=== PATIENT | female | born 1995 | race American Indian/Alaskan Native ===

== ENCOUNTER 2018-02-12 12:52 | Emergency (ER) | payer BC ==
[2018-02-12 12:58] VITALS: BP 98/72
--- NOTE | 2018-02-12 13:33 | Emergency Department Report ---
Chief Complaint: Abdominal Pain Stated Complaint: BACK PAIN Time Seen by Provider: 02/12/18 13:31 - HPI History of Present Illness: 22-year-old female presents to the emergency department with left flank pain that she says is "kidney pain" that started earlier today. She came in by EMS. No nausea, vomiting, fever, dysuria, vaginal bleeding or discharge. 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 - ROS Review of Systems: Positive for left flank/kidney pain Negative for nausea, vomiting, fever, dysuria, vaginal bleeding or discharge - Exam Vital Signs: Vital Signs 02/12/18 12:54 Temperature 98.3 F Pulse Rate 103 H Respiratory 16 Rate Blood Pressure 98/72 O2 Sat by Pulse 98 Oximetry Physical Exam: There is mild CVA tenderness to palpation but no discomfort with light palpation. Heart and lung sounds are normal auscultation. Normal bowel sounds MSE screening note: Focused history and physical exam performed. Due to findings the following was ordered: I have ordered a CBC, CMP, urinalysis and urine test. She will have a left renal ultrasound. ED Disposition for MSE Condition: Stable Instructions: Abdominal Pain (ED) Referrals: PRIMARY CARE, [Primary Care Provider] - 3-5 Days
[2018-02-12 14:15] LABS: Basophils % (Auto) 0.5 % (0.0-1.8); Eosinophils % (Auto) 0.2 % (0.0-4.3); Hematocrit 39.8 % (30.3-42.9); Hemoglobin 12.8 gm/dl (10.1-14.3); Lymphocytes # (Auto) 1.2 K/mm3 (1.2-5.4); Lymphocytes % (Auto) 17.3 % (13.4-35.0); Mean Corpuscular HGB Conc 32 % (30-34); Mean Corpuscular Hemoglobin 28 pg (28-32); Mean Corpuscular Volume 86 fl (79-97); Monocytes # (Auto) 0.7 K/mm3 (0.0-0.8); Monocytes % (Auto) 9.9 % (0.0-7.3); Platelet Count 253 K/mm3 (140-440); Red Blood Count 4.63 M/mm3 (3.65-5.03); Red Cell Distribution Width 15.4 % (13.2-15.2)
[2018-02-12 14:49] LABS: Alanine Aminotransferase 8 units/L (7-56); Albumin 4.2 g/dL (3.9-5); BUN/Creatinine Ratio 14; Blood Urea Nitrogen 10 mg/dL (7-17); Calcium 9.1 mg/dL (8.4-10.2); Hemolysis Index 12
[2018-02-12 15:04] LABS: Bilirubin,Urine NEG (Negative); Blood,Urine NEG (Negative); Color,Urine Yellow (Yellow); Mucus,Urine 2+ /HPF; Protein,Urine <15 mg/dL mg/dL (Negative); Urobilinogen,Urine < 2.0 mg/dL (<2.0)
[2018-02-12 15:07] LABS: HCG Qualitative,Urine Negative (Negative)
--- NOTE | 2018-02-12 15:36 | Ultrasound Report ---
FINAL REPORT EXAM: US RENAL LT HISTORY: left flank pain TECHNIQUE: Renal ultrasound. PRIORS: None currently available. FINDINGS: Only the left kidney was imaged. Left kidney measures 12.3 x 6.7 x 5.4 cm. Cortex measures 1.7 cm. Mildly prominent left renal calices may be related to minimal hydronephrosis or pelviectasis. No distinct lesions. Normal echotexture noted. Contracted bladder is not well evaluated. Grossly unremarkable. IMPRESSION: Mildly prominent left renal calices may represent pelviectasis or and minimal hydronephrosis.
--- NOTE | 2018-02-12 16:02 | Emergency Department Report ---
ED Abdominal Pain HPI - General Chief Complaint: Abdominal Pain Stated Complaint: BACK PAIN Time Seen by Provider: 02/12/18 13:31 Source: patient Mode of arrival: Ambulatory Limitations: No Limitations - History of Present Illness Initial Comments: This is a 22-year-old female nontoxic, well nourished in appearance, no acute signs of distress presents to the ED with c/o of left flank pain x1 day. Patient describes pain as cramping and aching with level of 8/10. Patient denies any radiation of pain. Patient denies any urinary symptoms. Patient denies any nausea, vomiting, chest pain, shortness of breathe, fever, chills, headache, neck pain, numbness or tingling. Patient denies any vaginal bleeding or discharge. Patient stated has history of right nephrectomy as a child. Patient denies any trauma. Denies any allergies. MD Complaint: flank pain -: days(s) (1) Location: L flank Radiation: none Migration to: no migration Severity scale (0 -10): 8 Quality: cramping, aching Consistency: constant Improves With: nothing Worsens With: nothing Associated Symptoms: denies other symptoms. denies: nausea, vomiting, diarrhea , fever, chills, constipation, dysuria, hematemesis, hematochezia, melena, hematuria, anorexia, syncope - Related Data LMP Date: 01/31/18 Previous Rx's Medication Instructions Recorded Last Taken Type Ibuprofen [Motrin] 600 mg PO Q8H PRN #30 tablet 02/12/18 Unknown Rx Allergies Allergy/AdvReac Type Severity Reaction Status Date / Time No Known Allergies Allergy Unverified 02/12/18 12:58 ED Review of Systems ROS: Stated complaint: BACK PAIN Other details as noted in HPI Constitutional: denies: chills, fever Eyes: denies: eye pain, eye discharge, vision change ENT: denies: ear pain, throat pain Respiratory: denies: cough, shortness of breath, wheezing Cardiovascular: denies: chest pain, palpitations Endocrine: no symptoms reported Gastrointestinal: denies: abdominal pain, nausea, vomiting, diarrhea Genitourinary: denies: urgency, dysuria, discharge Musculoskeletal: denies: back pain, joint swelling, arthralgia Skin: denies: rash, lesions Neurological: denies: headache, weakness, paresthesias Psychiatric: denies: anxiety, depression Hematological/Lymphatic: denies: easy bleeding, easy bruising ED Past Medical Hx - Past Medical History Additional medical history: Fibroids - Surgical History Past Surgical History?: Yes Additional Surgical History: R nephrectomy - Social History Smoking Status: Current Every Day Smoker Substance Use Type: None - Medications Home Medications: Home Medications Medication Instructions Recorded Confirmed Last Taken Type Ibuprofen [Motrin] 600 mg PO Q8H PRN #30 tablet 02/12/18 Unknown Rx ED Physical Exam - General Limitations: No Limitations General appearance: alert, in no apparent distress - Head Head exam: Present: atraumatic, normocephalic - Eye Eye exam: Present: normal appearance Pupils: Present: normal accommodation - ENT ENT exam: Present: normal exam, mucous membranes moist - Neck Neck exam: Present: normal inspection, full ROM. Absent: tenderness, meningismus, lymphadenopathy - Respiratory Respiratory exam: Present: normal lung sounds bilaterally. Absent: respiratory distress, wheezes, rales, rhonchi, stridor, chest wall tenderness, accessory muscle use, decreased breath sounds, prolonged expiratory - Cardiovascular Cardiovascular Exam: Present: regular rate, normal rhythm, normal heart sounds. Absent: systolic murmur, diastolic murmur, rubs, gallop - GI/Abdominal GI/Abdominal exam: Present: soft, normal bowel sounds. Absent: distended, tenderness, guarding, rebound, rigid, diminished bowel sounds - Rectal Rectal exam: Present: deferred - Extremities Exam Extremities exam: Present: normal inspection, full ROM, normal capillary refill - Back Exam Back exam: Present: normal inspection, full ROM, other (left flank tenderness). Absent: tenderness, CVA tenderness (R), CVA tenderness (L), muscle spasm, paraspinal tenderness, vertebral tenderness, rash noted - Neurological Exam Neurological exam: Present: alert, oriented X3, normal gait - Psychiatric Psychiatric exam: Present: normal affect, normal mood - Skin Skin exam: Present: warm, dry, intact, normal color. Absent: rash ED Course Vital Signs 02/12/18 12:54 Temperature 98.3 F Pulse Rate 103 H Respiratory 16 Rate Blood Pressure 98/72 O2 Sat by Pulse 98 Oximetry - Reevaluation(s) Reevaluation #1: 02/12/18 16:14 Patient is speaking in full sentences with no signs of distress noted. - Consultations Consultation #1: 02/12/18 16:15 Patient has been consulted with Dr. Hand about patient history, physical exam, and labs/US report and examined and screened patient and agrees to ED plan of care and discharge plan of care. ED Medical Decision Making - Lab Data Result diagrams: 02/12/18 13:53 02/12/18 13:50 - Medical Decision Making This is a 22-year-old female that presents with flank pain. Patient stable was examined by me and Dr. Hand. No abdominal tenderness. No rebound tenderness. Labs obtained. US obtained and dictated by the radiologist. PAtient is notified of the report with no questions noted by the patient. Patient was instructed to increase hydration. Patient was referred to Follow-up with a primary care/nephrology doctor in 3-5 days or if symptoms worsen and continue return to emergency room as soon as possible. At time of discharge, the patient does not seem toxic or ill in appearance. No acute signs of distress noted. Patient agrees to discharge treatment plan of care. No further questions noted by the patient. Critical care attestation.: If time is entered above; I have spent that time in minutes in the direct care of this critically ill patient, excluding procedure time. ED Disposition Clinical Impression: Left flank pain Disposition: DC-01 TO HOME OR SELFCARE Is pt being admited?: No Does the pt Need Aspirin: No Condition: Stable Instructions: Flank Pain (ED), Ibuprofen (By mouth) Additional Instructions: Follow-up with a primary care/nephrology doctor in 3-5 days or if symptoms worsen and continue return to emergency room as soon as possible. Prescriptions: Ibuprofen [Motrin] 600 mg PO Q8H PRN #30 tablet PRN Reason: Pain Referrals: PRIMARY MD SHEBA [Primary Care Provider] - 3-5 Days RODRI MARCH MD [Staff Physician] - 3-5 Days LUIGI BAEZ MD [Staff Physician] - 3-[address] [facility] [Outside] - 3-5 Days [facility] [Outside] - 3-5 Days Forms: Work/School Release Form(ED)
[2018-02-12] MEDS ORDERED: MOTRIN PO ONE (16:08)
== END 2018-02-12 16:31 | disposition home or self-care (01) ==
LOC: ED 12:52
DX: K68.9 Other disorders of retroperitoneum (principal); R10.9 Unspecified abdominal pain; F17.200 Nicotine dependence, unspecified, uncomplicated
CPT/HCPCS: 36415; 76775; 80053; 81001; 81025; 85025; 99284